=== PATIENT | male | born 1965 | race Caucasian/White ===

== ENCOUNTER → 2022-02-26 15:15 | Outpatient (CLI) | payer BC, SELFPAY ==
[2022-02-26 18:44] LABS: Basophils # 0.1 K/mm3 (0-0.2); Basophils % 1.5 % (0.1-2.0); Eosinophils # 0.3 K/mm3 (0.0-0.4); Eosinophils % 5.3 % (0.1-12.0); Hematocrit 52.2 % (42.0-52.0); Hemoglobin 17.5 g/dL (14.1-18.0); Lymphocytes # 1.3 K/mm3 (0.7-4.5); Lymphocytes % 22.4 % (10-50); Mean Corpuscular HGB Conc 33.6 g/dL (31.8-35.4); Mean Corpuscular Hemoglobin 33.1 pg (27.0-31.2); Mean Corpuscular Volume 98.4 fl (80-94); Mean Platelet Volume 8.5 fl (7.4-10.4); Monocytes # 0.6 K/mm3 (0.1-1.0); Monocytes % 10.1 % (1.7-9.3); Neutrophils # 3.4 K/mm3 (1.8-7.8); Neutrophils % 60.7 % (37.0-80.0); Platelet Count 295 K/mm3 (142-424); Red Blood Count 5.31 M/mm3 (4.60-6.20); Red Cell Distribution Width 13.2 % (11.5-17.5); White Blood Count 5.7 K/mm3 (4.8-10.8)
[2022-02-26 19:00] LABS: Alanine Aminotransferase 20 U/L (12-78); Albumin Level 4.4 g/dl (3.5-5.0); Albumin/Globulin Ratio 1.5 (1.1-1.8); Alkaline Phosphatase 84 U/L (38-126); Anion Gap 14.8 mEq/L (5-15); Aspartate Amino Transferase 26 U/L (17-59); Bilirubin,Total 0.9 mg/dl (0.2-1.3); Blood Urea Nitrogen 22 mg/dl (9-20); Calcium 9.1 mg/dl (8.4-10.2); Carbon Dioxide 22 mmol/L (22.0-30.0); Chloride 108 mmol/L (98-107); Chol/HDL Ratio 3.5 (1-3.5); Cholesterol 107 mg/dl (140-200); Estimated Glomerular Filt Rate 63 ml/min (>60); GFR (African American) 76 ML/MIN (>60); Globulin 2.9 g/dL (1.3-3.2); Glucose 92 mg/dl (74-100); HDL Cholesterol 31 mg/dl (40-60); Potassium 4.8 mmoL/L (3.5-5.1); Sodium 140 mmol/L (136-145); Total Protein,Serum 7.3 g/dl (6.3-8.2); Triglycerides 188 mg/dl (30-150); VLDL Cholesterol 38 mg/dL (0-40)
[2022-02-26 19:11] LABS: Direct LDL Cholesterol 47.14 mg/dL (100-129)
[2022-02-26 19:32] LABS: Thyroid Stimulating Hormone 1.27 uIU/mL (0.465-4.68)
[2022-02-26 19:36] LABS: Hemoglobin A1C 5.5 % (4.0-6.0)
== END ==
PROVIDERS: PCP Nurse Practitioner Family; Visit Provider Nurse Practitioner Family
DX: R53.83 Other fatigue (principal); I10 Essential (primary) hypertension; Z79.899 Other long term (current) drug therapy; Z12.5 Encounter for screening for malignant neoplasm of prostate
CPT/HCPCS: 80053; 80061; 83036; 84443; 85025; G0103

== ENCOUNTER → 2022-04-22 10:22 | Outpatient (CLI) | payer BC, SELFPAY ==
[2022-04-22 11:03] LABS: Basophils # 0.1 K/mm3 (0-0.2); Basophils % 1.4 % (0.1-2.0); Eosinophils # 0.4 K/mm3 (0.0-0.4); Eosinophils % 6.9 % (0.1-12.0); Hematocrit 52.4 % (42.0-52.0); Hemoglobin 17.2 g/dL (14.1-18.0); Lymphocytes # 1.2 K/mm3 (0.7-4.5); Lymphocytes % 22.3 % (10-50); Mean Corpuscular HGB Conc 32.9 g/dL (31.8-35.4); Mean Corpuscular Hemoglobin 32.2 pg (27.0-31.2); Mean Corpuscular Volume 97.8 fl (80-94); Mean Platelet Volume 7.3 fl (7.4-10.4); Monocytes # 0.4 K/mm3 (0.1-1.0); Monocytes % 7.8 % (1.7-9.3); Neutrophils # 3.4 K/mm3 (1.8-7.8); Neutrophils % 61.5 % (37.0-80.0); Platelet Count 261 K/mm3 (142-424); Red Blood Count 5.36 M/mm3 (4.60-6.20); Red Cell Distribution Width 13.2 % (11.5-17.5); White Blood Count 5.5 K/mm3 (4.8-10.8)
[2022-04-22 11:53] LABS: Anion Gap 12.1 mEq/L (5-15); Blood Urea Nitrogen 20 mg/dl (9-20); Calcium 8.9 mg/dl (8.4-10.2); Carbon Dioxide 27 mmol/L (22.0-30.0); Chloride 104 mmol/L (98-107); Estimated Glomerular Filt Rate 78 ml/min (>60); GFR (African American) 94 ML/MIN (>60); Glucose 135 mg/dl (74-100); Potassium 4.1 mmoL/L (3.5-5.1); Sodium 139 mmol/L (136-145)
== END ==
PROVIDERS: PCP Nurse Practitioner Family; Visit Provider Surgery
DX: D17.9 Benign lipomatous neoplasm, unspecified (principal)
CPT/HCPCS: 36415; 80048; 85025

== ENCOUNTER 2022-05-10 06:57 | Day surgery (SDC) | payer BC, SELFPAY ==
[2022-05-05 13:49] VITALS: BMI 27.8
[2022-05-10] VITALS (9 sets, daily range): BP systolic 124–145; BP diastolic 80–94; PULSE 58–76; RESP 12–18; TEMP 36.2–36.3; O2SAT 94–99
--- NOTE | 2022-05-10 08:02 | P.PN_ITS ---
[facility] Disclaimer: The information contained in this section may have been updated after the patient was seen, as this information can be updated by other users. Medical History Allergies Migraine Surgical History History of cardiac radiofrequency ablation (RFA) History of radiofrequency ablation (RFA) procedure for cardiac arrhythmia Family History Other Family history of myocardial infarction Social History Smoking Status: Current every day smoker alcohol intake: current substance use type: marijuana current occupational status: employed Travel in the last 8 weeks: None [facility] Anesthesia Checklist Patient Identification Patient Identification: Arm Band and Verbal (Name & ) Structural Data Admitted From: Home Planned Operative Procedure/s: Lesion removal Consent for Planned Operative Procedure(s) Verified: Yes NPO Status Verified Time NPO: 00:00 Additional verifications Anesthesia Reactions: No Hx Blood Transfusions: No Blood Transfusion Reaction: No Airway Assessment C-Spine Mobility Assessed: Yes TMJ Mobility Assessed: Yes Dentition: Poor Dentition Neurological Assessment Level of Consciousness: Awake Hx Seizures: No Numbness or tingling in extremities: No Anesthesia Plan Anesthesia Risk discussed: Yes Anesthesia Plan: Verified ASA Class: II Anesthesia Type: MAC
--- NOTE | 2022-05-10 09:02 | EXP.OP.NOTE ---
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 He had had a lipoma excised many years ago on the back. This was reportedly benign. He had a recurrence. Given the recurrent nature and size plan was made for excision under anesthesia. Operative findings:: Consistent with a lobulated benign lipoma Operative note:: Patient was taken the operating room. He was positioned in supine position. General anesthesia was induced. The area was prepped and draped in a standard surgical fashion. The area was marked with a skin marker marking the boundaries of the palpable lipoma. Transverse incision was then made partially in previous scar. Dissection was carried down full-thickness through the skin. Relatively well-circumscribed but somewhat lobulated lipomatous tissue was encountered. This was dissected free circumferentially using Metzenbaum dissection with limited use of electrocautery. There was what appeared to be branching vessel which was clamped divided and ligated with 2-0 Vicryl tie. Lipoma was then removed and sent off as specimen. Hemostasis was achieved with electrocautery. Wound was irrigated. Local anesthetic was infiltrated. Deep dermal tissues were closed with interrupted 2-0 Vicryl. Skin was closed with 4-0 Monocryl in a subcuticular fashion. Dermabond and dressing was applied. Condition: stable Disposition: PACU Complications:: None immediately apparent
--- NOTE | 2022-05-10 09:08 | EXP.ANES.I ---
[facility] Anesthesia Record Part I Anesthesia Record I Intake, IV Amount: 500 Estimated blood loss (mL): 2 Urine output (mL): 0 Blood Pressure: 130/80 SaO2: 96 Pulse Rate: 61 Respiratory Rate: 12 Temperature: 97.3 F Patient is:: Drowsy and Oral/Nasal airway Stable to PACU at:: 09:08
--- NOTE | 2022-05-10 10:07 | SUR.PHASEII ---
per dr. brooke- pt to hold xarelto today and may resume tomorrow.
--- NOTE | 2022-05-13 12:46 | P.PNANES_ITS ---
[facility] Anesthesia Record Part II Anesthesia Record Part II Discharge Time: 09:38 Destination: Surgical Day Care (OP Surgery) PACU nurse assessment reviewed?: Yes Patient Condition:: Good Anesthesia Complications:: None Swallowing reflex intact?: Yes Cyanosis?: No Blood Pressure: 136/88 Pulse Rate: 76 Temperature: 97.2 F Mental Status: Alert & Oriented Pain level:: 0 Nausea and/or vomitting:: None Intake, IV Amount: 0
[2022-05-13 12:47] VITALS: BP 136/88; PULSE 76; TEMP 36.2
== END 2022-05-10 10:20 | disposition home or self-care (01) ==
PROVIDERS: PCP Nurse Practitioner Family; Visit Provider Surgery
PROC: (CPT 11406; principal; 2022-05-10 08:30)
DX: D17.1 Benign lipomatous neoplasm of skin and subcutaneous tissue of trunk (principal); Z79.899 Other long term (current) drug therapy
CPT/HCPCS: 11406; 12032; 96374; J2405

== ENCOUNTER 2023-08-03 14:26 | Outpatient (CLI) | payer BC, SELFPAY ==
--- NOTE | 2023-08-03 14:38 | CA_ITS ---
FINAL REPORT TECHNIQUE: Compression montejo scale and Doppler evaluation CLINICAL HISTORY: right ankle pain after strain, swelling FINDINGS: Femoral and popliteal veins show normal compressibility and flow. Visualized portion of the calf veins are patent by Doppler exam. IMPRESSION: No evidence of right lower extremity deep venous thrombosis Reviewed, Interpreted and Dictated by Pedro Luis Blair MD Transcribed by Nhi Daley Authenticated and [facility]
== END 2023-08-03 23:59 | disposition home or self-care (01) ==
PROVIDERS: PCP Nurse Practitioner Family; Visit Provider Nurse Practitioner Family
DX: M79.604 Pain in right leg (principal); R60.0 Localized edema
CPT/HCPCS: 93971

== ENCOUNTER 2023-12-19 10:46 | Outpatient (CLI) | payer BC, SELFPAY ==
--- NOTE | 2023-12-19 10:51 | XR_ITS ---
FINAL REPORT CLINICAL HISTORY: Nonspecific cough, shortness of breath COMPARISON: None FINDINGS: Two views of the chest were obtained. The heart size and pulmonary vascularity are within normal limits. The mediastinum is normal. No acute pulmonary abnormality is identified. There is no pneumothorax. The bony thorax is intact. IMPRESSION: No active cardiopulmonary disease. Reviewed, Interpreted and Dictated by Logan Egan III, MD Transcribed by Liliane Baeza Authenticated and [facility]
[2023-12-19 17:44] LABS: Coronavirus 19, PCR Not Detected (NotDetected); Influenza A, PCR Not Detected (NotDetected); Influenza B, PCR Not Detected (NotDetected)
== END 2023-12-19 23:59 | disposition home or self-care (01) ==
LOC: RAD 10:47
PROVIDERS: PCP Nurse Practitioner Family; Visit Provider Family Medicine
DX: J06.9 Acute upper respiratory infection, unspecified (principal)
CPT/HCPCS: 71046; 87636

== ENCOUNTER → 2024-07-10 11:07 | Outpatient (CLI) | payer OTHER, SELFPAY | PROVIDERS: PCP Nurse Practitioner Family; Visit Provider Nurse Practitioner Family | DX: G47.33 Obstructive sleep apnea (adult) (pediatric) (principal); G47.36 Sleep related hypoventilation in conditions classified elsewhere; R40.0 Somnolence; R06.83 Snoring | CPT/HCPCS: G0399 ==